=== PATIENT | male | born 1990 | race Caucasian/White ===

== ENCOUNTER 2024-04-06 16:07 | Outpatient (CLI) | payer OTHER, SELFPAY ==
[2024-04-06 23:31] LABS: Chlamydia DNA Amplified* NOT DETECTED (No Detected); GC DNA Amplified* NOT DETECTED (No Detected)
== END 2024-04-06 16:08 | disposition home or self-care (01) ==
LOC: NFLDUCREF 16:25
PROVIDERS: Visit Provider Physician Assistant
DX: Z11.3 Encounter for screening for infections with a predominantly sexual mode of transmission (principal); Z20.2 Contact with and (suspected) exposure to infections with a predominantly sexual mode of transmission
CPT/HCPCS: 87491; 87591

== ENCOUNTER 2024-09-21 16:12 | Outpatient (CLI) | payer OTHER, SELFPAY | END 2024-09-21 16:13 | disposition home or self-care (01) | PROVIDERS: Visit Provider Family Medicine | DX: R30.0 Dysuria (principal); Z11.3 Encounter for screening for infections with a predominantly sexual mode of transmission | CPT/HCPCS: 86592; 86703; 87491; 87591 ==